=== PATIENT | male | born 1955 | race Caucasian/White ===

== ENCOUNTER 2021-04-24 10:10 | Emergency (ER) | payer OTHER, SELFPAY ==
--- NOTE | ~2021-04-24 | CT_ITS ---
EXAMINATION: THE MASTOID BONES. CLINICAL INFORMATION: Severe right arteritis externa/ear pain COMPARISON: None TECHNIQUE: Axial 0.6 mm thin and reformatted 0.6 mm thin sagittal and coronal images of the mastoid bones were obtained. DLP 294 FINDINGS: There is normal symmetry of bilateral well-aerated mastoid sinuses. There is mild mucoperiosteal thickening left sphenoid sinus. Rest of the paranasal sinuses are well-aerated and clear. RIGHT EAR: There is mucosal thickening along the right external auditory canal consistent with otitis externa. The underlying bone is preserved. The tympanic membrane is normal appearing. The middle ear ossicles are visualized and are symmetrical to the left side. The internal auditory canal, cochlea and the semicircular smiles osseous normal. There is no mucosal thickening in the middle ear. There is mild mucosal thickening right external ear but no focal abscess or collection. The left ear: The left extremity artery canal is widely patent with no mucosal thickening. No bony erosive changes. The left middle ear, tympanic membrane and the middle ear ossicles are intact. The left internal auditory canal, semicircular canals and the cochlea appears intact CT/CT mastoid IMPRESSION: Moderate mucosal thickening right external ear suggestive of otitis externa. No soft tissue mass or abscess seen. The middle ear and internal ear appears intact. The left ureter appears intact. The mastoid sinuses are well-aerated.
[2021-04-24 10:16] VITALS: BP 148/70; PULSE 65; RESP 17; TEMP 35.4; O2SAT 98; BMI 31.9
--- NOTE | 2021-04-24 11:00 | ED_ITS ---
HPI - Ear Problem General Chief complaint: Ear Problems Stated complaint: R SIDE HEAD AND EAR PAIN Time Seen by Provider: 04/24/21 10:42 Source: patient and family () Mode of arrival: ambulatory Limitations: no limitations History of Present Illness HPI Narrative: 65-year-old male with right ear pain for the last week much worse the last 3 days. States her pain is like a toothache, and is throbbing pain. No fevers, no upper respiratory symptoms, no runny nose, no sore throat. No ear discharge. Patient has an appointment at [facility] to be fitted for hearing aids May 05. Patient has pain when he chews. MD Complaint: ear pain Location: right ear Duration: constant Severity: severe Relieving factors: nothing Exacerbating factors: chewing Context: other (long showers) Discharge from ear: no Associated symptoms ear: external ear tenderness Treatment prior to arrival: none Related Data Previous Rx's Medication Instructions Recorded ciprofloxacin HCl 500 mg tablet 500 mg PO BID 7 Days #14 tab 04/24/21 ofloxacin 0.3 % ear drops 10 drp OTIC (EARS) BID 14 Days 04/24/21 #250 ml prednisolone acetate 1 % eye 1 drp OPHTHALMIC (EYE) BID 14 Days 04/24/21 drops,suspension #50 ml prednisone 20 mg tablet 40 mg PO DAILY 5 Days #10 tab 04/24/21 Allergies Allergy/AdvReac Type Severity Reaction Status Date / Time amoxicillin [AMOXICILLIN] Allergy Severe TONGUE Verified 04/24/21 10:22 SWELLING Sulfa (Sulfonamide Allergy Severe SWELLING Verified 04/24/21 10:22 Antibiotics) [SULFA(SULFONAMIDE ANTIBIOTICS)] Iodinated Contrast Media AdvReac Severe TREMORS Verified 04/24/21 10:22 [IV CONTRAST] ezetimibe [From ZETIA] AdvReac Intermediate DIARRHEA Verified 04/24/21 10:22 Review of Systems Constitutional: Constitutional: Denies body ache(s), Denies chills, Denies fatigue, Denies fever(s), Denies headache(s), Denies malaise and Denies weakness Eyes: Eyes: Denies diplopia ENT: Denies vertigo, Denies dizziness, Denies ear discharge, Reports otalgia, Denies headache(s), Denies nasal congestion, Denies nasal discharge, Denies neck pain, Denies sore throat and Denies throat swelling Cardiovascular: Cardiovascular: Denies chest pain, Denies syncope, Denies leg edema, Denies lightheadedness, Denies Loss of Consciousness, Denies palpitations and Denies dyspnea Respiratory: Respiratory: Denies chest congestion, Denies cough and Denies dyspnea Gastrointestinal: Gastrointestinal: Reports abdominal pain, Denies hematochezia, Denies constipation, Denies diarrhea and Denies vomiting Musculoskeletal: Musculoskeletal: Reports no additional musculoskeletal complaints and Denies neck pain Neurologic: Denies confusion, Denies vertigo, Denies dizziness, Denies syncope , Denies headache(s) and Denies weakness Psychiatric: Psychiatric: Denies anxiety, Denies confusion and Denies depression Endocrine: Endocrine: Denies fatigue and Denies palpitations Allergic/Immunologic: Allergic/Immunologic: Denies throat swelling PMFSH Past Medical History Medical History Asthma High cholesterol Hypertension Social History Social History Advance Directives: No Advance Directives Information Provided: No Physical Exam Vital Signs: Vital Signs: Last Vital Signs Temp 97.1 F 04/24/21 13:17 Pulse 55 04/24/21 13:17 Resp 18 04/24/21 13:17 BP 121/70 04/24/21 13:17 Pulse Ox 97 04/24/21 13:17 Body Mass Index 31.9 Const: General: No confusion Nutritional Appearance: well nourished Orientation/consciousness: No confusion Limitations: no limitations HENMT: Head: Yes normal to inspection, Yes normocephalic and Yes atraumatic Ears: hearing grossly normal bilaterally, TM normal on the left, Abnormal EAC present edema on the right and diffuse and EAC tenderness on the right and diff use; Negative for no erythema and no otic discharge, external ear abnormal pain with movement of external ear (tragal tenderness) on the right, mastoid abnormal (tender over right mastoid) and periauricular adenopathy on the right Outer ear/TM images: 1. Severely swollen external auditory canal General nose exam: Normal external nose present Face and sinus: Yes normal facial exam Mouth: Normal oral and palatal mucosa present Throat: Yes posterior oropharynx normal Eyes: Conjunctivae: conjunctivae normal Pupils: Equal, round and reactive pupils present EOM: EOMs intact bilaterally Neck: Neck: Yes full ROM, Yes no lymphadenopathy and Yes supple Resp: Effort & Inspection: normal respiratory effort and able to speak in complete sentences Auscultation: clear to auscultation bilaterally, no crackles, no rales, no rhonchi and no wheezes Cardio: Rate: regular rate Rhythm: regular rhythm Heart sounds: S1 norm al heart sound present and S2 normal heart sound present GI: Inspection: Yes normal to inspection Palpation (GI): Soft to palpation, nontender, no guarding and not rigid Percussion: Yes normal to percussion Auscultation: normal bowel sounds Skin: General skin exam: no rashes or lesions noted Neuro: General: No confusion Cranial nerves: Yes Equal, round and reactive pupils present Extrem: General: Yes normal to inspection and Yes full ROM Psych: Appearance: grossly normal Affect: normal affect Attitude: cooperative Thought process: Normal thought process present Course Course Course Narrative: 65-year-old presents with severe right otitis externa. Patient has right tragal tenderness and of very swollen right external auditory canal. I am not able to insert my otoscope and patient's ear canal, there was too much swelling and edema. Patient is tender over his right mastoid, reports tenderness in his jaw while chewing, concern for malignant or necrotizing external otitis. Therefore obtained CT and labs CT reads: Moderate mucosal thickening right external ear suggestive of otitis externa. No soft tissue mass or abscess seen. The middle ear and internal ear appears intact. The left ureter appears intact. The mastoid sinuses are well-aerated. CRP mildly elevated. No leukocytosis. I was able to insert ear wick in right ear. Patient discharged with oral ciprofloxacin, otic ofloxacin and prednisolone. given the extensive instructions on dosage of prescribed medications, patient referred to our ENT. counseled to call ENT today to see if she can get an appointment before patient has appointment for his hearing aid fitting. MDM - Ear Lab Data Result diagrams: 04/24/21 11:46 Labs: Lab Results 04/24/21 04/24/21 04/24/21 Range/Units 11:46 11:46 11:46 WBC 6.2 (4.8-10.8) X10*3/uL RBC 4.76 (4.60-5.80) X10*6/uL Hgb 14.0 (14.0-18.0) g/dl Hct 40.5 L (42-52) % MCV 85.1 (80-98) fL MCH 29.4 (27.0-33.0) pg MCHC 34.6 (31.0-36.0) g/dl RDW 12.7 (11.0-16.0) % Plt Count 153 L (160-400) X10*3/uL MPV 9.2 L (9.4-12.4) fL Immature Gran % (Auto) 0.3 (0.0-0.4) % Neut % (Auto) 74.4 H (45-73) % Lymph % (Auto) 15.1 L (20-40) % [place] % (Auto) 7.9 (2-11) % Eos % (Auto) 2.1 (0-4) % Baso % (Auto) 0.2 (0-2) % Lymph # (Auto) 0.9 L (1.2-4.9) X10*3/uL [place] # (Auto) 0.5 (0.1-1.2) X10*3/uL Eos # (Auto) 0.1 (0.0-0.4) X10*3/uL Baso # (Auto) 0.0 (0.0-0.2) X10*3/uL Abs Immat Gran (auto) 0.02 (0.00-0.03) X10*3/uL Absolute Neuts (auto) 4.6 (2.0-8.3) X10*3/uL Absolute Nucleated RBC 0.000 (0.0-0.012) X10*3/uL Nucleated RBC % (auto) 0.0 (0.0-0.2) /100WBC ESR 7 (0-15) MM/HR C-Reactive Protein 0.71 H (< or = 0.50) mg/dL Discharge Plan Discharge Clinical Impression: Otitis externa Qualifiers: Otitis externa type: diffuse Chronicity: acute Laterality: right Qualified Code(s): H60.311 - Diffuse otitis externa, right ear Patient Disposition: Home, Self-Care Instructions: Otitis Externa (ED) Additional Instructions: Call Dr Ceron today for a follow up appointment. [phone], today. Clay needs to have a follow-up appointment as soon as possible. Please apply the ear drops to a cotton ball and use as directed. Please take the oral prednisone in the oral antibiotics as well. Please return to emergency room for fevers, worsening pain, or any other new or concerning symptoms Prescriptions: New ciprofloxacin HCl 500 mg tablet 500 mg PO BID 7 Days Qty: 14 RF: 0 prednisone 20 mg tablet 40 mg PO DAILY 5 Days Qty: 10 RF: 0 ofloxacin 0.3 % drops 10 drp otic (ears) BID 14 Days Qty: 250 RF: 0 prednisolone acetate 1 % drops,suspension 1 drp ophthalmic (eye) BID 14 Days Qty: 50 RF: 0 Referrals: Sterling Ceron [Physician] - 2 days (severe right otitis externa) Stand Alone Forms: Work/School Release Interventions: ED Discharge Assessment Last Done: 04/24/21 13:52
[2021-04-24 11:53] LABS: Basophils Percent Auto 0.2 % (0-2); Eosinophils Absolute Auto 0.1 X10*3/uL (0.0-0.4); Eosinophils Percent Auto 2.1 % (0-4); Hematocrit 40.5 % (42-52); Imm Gran Abs Auto 0.02 X10*3/uL (0.00-0.03); Imm Gran Pct Auto 0.3 % (0.0-0.4); Lymphocytes Absolute Auto 0.9 X10*3/uL (1.2-4.9); Lymphocytes Percent Auto 15.1 % (20-40); MANUAL DIFF FLAG NO; Mean Corpuscular HGB Conc 34.6 g/dl (31.0-36.0); Mean Corpuscular Hemoglobin 29.4 pg (27.0-33.0); Mean Corpuscular Volume 85.1 fL (80-98); Mean Platelet Volume 9.2 fL (9.4-12.4); Monocytes Absolute Auto 0.5 X10*3/uL (0.1-1.2); Monocytes Percent Auto 7.9 % (2-11); Neutrophils Absolute Auto 4.6 X10*3/uL (2.0-8.3); Neutrophils Percent Auto 74.4 % (45-73); Platelet Count 153 X10*3/uL (160-400); Red Blood Count 4.76 X10*6/uL (4.60-5.80); Red Cell Distribution Width 12.7 % (11.0-16.0); White Blood Count 6.2 X10*3/uL (4.8-10.8)
[2021-04-24 12:07] LABS: C Reactive Protein 0.71 mg/dL (< or = 0.50)
[2021-04-24 12:34] LABS: Erythrocyte Sedimentation Rate 7 MM/HR (0-15)
[2021-04-24 13:17] VITALS: BP 121/70; PULSE 55; RESP 18; TEMP 36.2; O2SAT 97
== END 2021-04-24 14:01 | disposition home or self-care (01) ==
PROVIDERS: Physician Assistant; Emergency Provider Emergency Medicine; PCP Internal Medicine
DX: H60.311 Diffuse otitis externa, right ear (principal); H92.01 Otalgia, right ear; R51.9 Headache, unspecified; K08.89 Other specified disorders of teeth and supporting structures; Z79.899 Other long term (current) drug therapy
CPT/HCPCS: 36415; 70481; 85025; 85652; 86140; 87040; 99284

== ENCOUNTER 2022-07-02 14:29 | Emergency (ER) | payer OTHER, SELFPAY ==
[2022-07-02 15:45] VITALS: BP 146/76; PULSE 66; RESP 18; TEMP 36.8; O2SAT 98; BMI 34.2
--- NOTE | 2022-07-02 15:45 | ED_ITS ---
HPI - General Adult General Chief complaint: Upper Respiratory Symptoms Stated complaint: Sore Throat Time Seen by Provider: 07/02/22 17:28 Source: patient Mode of arrival: ambulatory Limitations: no limitations Related Data Previous Rx's Medication Instructions Recorded ciprofloxacin HCl 500 mg tablet 500 mg PO BID 7 days #14 tabs 04/24/21 ofloxacin 0.3 % ear drops 10 drp otic (ears) BID 14 days 04/24/21 #250 mL prednisolone acetate 1 % eye 1 drp ophthalmic (eye) BID 14 days 04/24/21 drops,suspension #50 mL prednisone 20 mg tablet 40 mg PO DAILY 5 days #10 tabs 04/24/21 azithromycin 250 mg tablet See Rx Instructions PO .COMPLEX 07/02/22 upper resp infection #6 tabs Allergies Allergy/AdvReac Type Severity Reaction Status Date / Time amoxicillin [AMOXICILLIN] Allergy Severe TONGUE Verified 04/24/21 10:22 SWELLING Sulfa (Sulfonamide Allergy Severe SWELLING Verified 04/24/21 10:22 Antibiotics) [SULFA(SULFONAMIDE ANTIBIOTICS)] Iodinated Contrast Media AdvReac Severe TREMORS Verified 04/24/21 10:22 [IV CONTRAST] ezetimibe [From ZETIA] AdvReac Intermediate DIARRHEA Verified 04/24/21 10:22 [facility] Past Medical History Medical History Asthma High cholesterol Hypertension Social History Social History Advance Directives: No Advance Directives Information Provided: No Physical Exam ED Vital Signs: Vital Signs - 24 hr 07/02/22 15:45 Temperature 98.3 F Pulse Rate 66 Respiratory Rate 18 Blood Pressure 146/76 H Pulse Oximetry 98 Oxygen Delivery Method Room Air BMI result Body Mass Index 34.2 Course Course Course Narrative: RME performed by Tiffany Lopez PA-C. Patient is a 67 year old male presenting to the emergency department with a sore throat. COVID/RSV/Influenza and strep swabs ordered. Patient placed back in the waiting room pending results and bed availability. Patient seen and discharged by Dr. Portillo who created and completed his own note. Medical Decision Making Lab Data Labs: Lab Results 07/02/22 07/02/22 Range/Units 16:19 16:19 Influenza Type A (PCR) NEGATIVE (Negative) Influenza Type B (PCR) NEGATIVE (Negative) RSV RNA Qual (PCR) NEGATIVE (Negative) SARS-CoV-2 RNA (RT-PCR) NEGATIVE (Negative) S. pyogenes GrpA KELLIE Negative (Negative) Discharge Plan Discharge Clinical Impression: Upper respiratory infection Patient Disposition: Home, Self-Care Instructions: Upper Respiratory Infection (ED) Prescriptions: New azithromycin 250 mg tablet See Rx Instructions .ROUTE .COMPLEX Qty: 6 0RF Rx Instructions: take 500 mg today (day 1), then 250 mg for 4 days (days 2-5) No Action ciprofloxacin HCl 500 mg tablet 500 mg PO BID 7 Days Qty: 14 0RF prednisone 20 mg tablet 40 mg PO DAILY 5 Days Qty: 10 0RF ofloxacin 0.3 % drops 10 drp otic (ears) BID 14 Days Qty: 250 0RF prednisolone acetate 1 % drops,suspension 1 drp ophthalmic (eye) BID 14 Days Qty: 50 0RF Rx Instructions: Two drops to right ear 3 to 4 times a day for 2 weeks Referrals: Favio Lindo III, MD [Primary Care Provider] - Stand Alone Forms: Work/School Release Interventions: ED Discharge Assessment Last Done: 07/02/22 17:53 Discharge Date/Time: 07/02/22 17:53
[2022-07-02 16:34] LABS: Strep A Nucleic Acid Negative (Negative)
[2022-07-02 17:15] LABS: Influenza A PCR NEGATIVE (Negative); Influenza B PCR NEGATIVE (Negative); Resp Syncy Virus RNA Qual PCR NEGATIVE (Negative); SARS COV2 PCR INHOUSE NEGATIVE (Negative)
--- NOTE | 2022-07-02 17:43 | ED_ITS ---
HPI - URI/Sore Throat General Chief Complaint: Upper Respiratory Symptoms Stated Complaint: Sore Throat Time Seen by Provider: 07/02/22 17:28 Source: patient Mode of arrival: ambulatory Limitations: no limitations History of Present Illness HPI Narrative: Patient is a 67-year-old male vaccinated for COVID positive coughing upper respiratory symptoms for approximately 1 week along with having ear aches generalized malaise. He came to the ED for further evaluation. Patient is from home. No travel history. Related Data Previous Rx's Medication Instructions Recorded ciprofloxacin HCl 500 mg tablet 500 mg PO BID 7 days #14 tabs 04/24/21 ofloxacin 0.3 % ear drops 10 drp otic (ears) BID 14 days 04/24/21 #250 mL prednisolone acetate 1 % eye 1 drp ophthalmic (eye) BID 14 days 04/24/21 drops,suspension #50 mL prednisone 20 mg tablet 40 mg PO DAILY 5 days #10 tabs 04/24/21 azithromycin 250 mg tablet See Rx Instructions PO .COMPLEX 07/02/22 upper resp infection #6 tabs Allergies Allergy/AdvReac Type Severity Reaction Status Date / Time amoxicillin [AMOXICILLIN] Allergy Severe TONGUE Verified 04/24/21 10:22 SWELLING Sulfa (Sulfonamide Allergy Severe SWELLING Verified 04/24/21 10:22 Antibiotics) [SULFA(SULFONAMIDE ANTIBIOTICS)] Iodinated Contrast Media AdvReac Severe TREMORS Verified 04/24/21 10:22 [IV CONTRAST] ezetimibe [From ZETIA] AdvReac Intermediate DIARRHEA Verified 04/24/21 10:22 Review of Systems Review of Systems: Positive generalized malaise weakness positive sore throat positive cough upper respiratory symptoms Yes all other systems are reviewed and are negative [facility] Past Medical History Attestation statement: The following information was validated with the patient. Medical History Asthma High cholesterol Hypertension Social History Social History Advance Directives: No Advance Directives Information Provided: No Physical Exam Vital Signs: Vital Signs: Last Vital Signs Temp 98.3 F 07/02/22 15:45 Pulse 66 07/02/22 15:45 Resp 18 07/02/22 15:45 BP 146/76 H 07/02/22 15:45 Pulse Ox 98 07/02/22 15:45 O2 Del Method 07/02/22 15:45 BMI result Body Mass Index 34.2 Appearance: Alert. Oriented X3. No acute distress. Eyes: Pupils equal, round and reactive to light. ENT: Pharynx normal. Neck: Normal inspection. Neck supple. No lymph nodes noted. No crepitus CVS: Normal heart rate and rhythm. Pulses normal. Normal S1 and S2 Respiratory: No respiratory distress. Breath sounds normal. No Wheezing. No rales Abdomen: Soft and nontender. No rigidity. No distention. good BS x4 Skin: Skin warm and dry. Normal skin color. Normal skin turgor. Extremities: No lower extremity edema. Neurovascular intact to all extremities. No Lacerations. No Rash Neuro: Oriented X 3. No motor deficit. No sensory deficit. Moving all extermities. No slurred speech MDM - URI/Sore Throat MDM Narrative Medical decision making narrative: Well-appearing O2 sat 98% on room air. Patient's flu RSV COVID all negative. Rapid strep negative. Likely viral question atypical infection we will go ahead and give patient a Z-Alexander. Follow up on an outpatient basis. In stable condition Medical Records Attestation: I reviewed the patient's medical records. Lab Data Attestation: I reviewed the patient's lab results. Labs: Lab Results 07/02/22 07/02/22 Range/Units 16:19 16:19 Influenza Type A (PCR) NEGATIVE (Negative) Influenza Type B (PCR) NEGATIVE (Negative) RSV RNA Qual (PCR) NEGATIVE (Negative) SARS-CoV-2 RNA (RT-PCR) NEGATIVE (Negative) S. pyogenes GrpA KELLIE Negative (Negative) Discharge Plan Discharge Clinical Impression: Upper respiratory infection Patient Disposition: Home, Self-Care Instructions: Upper Respiratory Infection (ED) Prescriptions: New azithromycin 250 mg tablet See Rx Instructions .ROUTE .COMPLEX Qty: 6 0RF Rx Instructions: take 500 mg today (day 1), then 250 mg for 4 days (days 2-5) No Action ciprofloxacin HCl 500 mg tablet 500 mg PO BID 7 Days Qty: 14 0RF prednisone 20 mg tablet 40 mg PO DAILY 5 Days Qty: 10 0RF ofloxacin 0.3 % drops 10 drp otic (ears) BID 14 Days Qty: 250 0RF prednisolone acetate 1 % drops,suspension 1 drp ophthalmic (eye) BID 14 Days Qty: 50 0RF Rx Instructions: Two drops to right ear 3 to 4 times a day for 2 weeks Referrals: Favio Lindo III, MD [Primary Care Provider] - Stand Alone Forms: Work/School Release
== END 2022-07-02 17:53 | disposition home or self-care (01) ==
PROVIDERS: Physician Assistant Medical; Emergency Provider Emergency Medicine Emergency Medical Services; PCP Internal Medicine
DX: J06.9 Acute upper respiratory infection, unspecified (principal); J02.9 Acute pharyngitis, unspecified; Z20.822 Contact with and (suspected) exposure to COVID-19; Z79.899 Other long term (current) drug therapy
CPT/HCPCS: 0241U; 87651; 99282; 99283

== ENCOUNTER 2023-09-27 09:02 | Outpatient (AMB) | payer OTHER, SELFPAY ==
--- NOTE | 2023-09-27 10:33 | AM.OFFWIN_ITS ---
Intake Vital Signs 09/27/23 10:42 Weight 212 lb BP 132/70 Blood Pressure Location Lt brachial Position Sitting Pulse 69 Pulse Source Pulse Oximeter Temp 97.3 F Temp Source Temporal Artery Scan Pulse Oximetry (%) 96 Oxygen Delivery Method Room Air Intake Visit Reasons: EP headache 100.8 fever cough [id number] Intake Note: pt is here today for headache fever 100.8 and cough started 2 days ago Patient Tobacco Use Status: Never used Tobacco Allergies amoxicillin [AMOXICILLIN] Allergy (Severe, Verified 09/27/23 10:34) TONGUE SWELLING Sulfa (Sulfonamide Antibiotics) [SULFA(SULFONAMIDE ANTIBIOTICS)] Allergy (Severe, Verified 09/27/23 10:34) SWELLING Iodinated Contrast Media [IV CONTRAST] Adverse Reaction (Severe, Verified 09/27/23 10:34) TREMORS ezetimibe [From ZETIA] Adverse Reaction (Intermediate, Verified 09/27/23 10:34) DIARRHEA Do you need a note to return to daycare/school/sports/work: Yes HPI HPI Comments History of Present Illness Details This is a 68-year-old male with a past medical history of hypertension, hyperlipidemia and BPH presenting for evaluation of a fever, cough, myalgias and headache that started yesterday. Patient states that his was seen in the emergency department over the weekend and was diagnosed with influenza. Patient has been using Tylenol and cough drops for his symptoms and is afebrile at this time. Patient denies having any ear pain, sore throat, chest pain or shortness of breath. [facility] Medical History Asthma High cholesterol Hypertension Social History Patient Tobacco Use Status: Never used Tobacco Review of Systems Const All systems reviewed & are unremarkable except as noted in HPI and below Reports no additional complaints, Reports body aches, Reports fever(s), Reports headache(s) and Reports malaise Eyes Reports no additional complaints ENT Reports no additional complaints and Reports headache(s) Card Reports no additional complaints, Denies chest pain and Denies dyspnea Resp Reports cough and Denies dyspnea Neuro Reports no additional complaints and Reports headache(s) Physical Exam Patient is afebrile. Const General: cooperative and comfortable; No no acute distress or lethargic Nutritional Appearance: average body habitus Orientation/consciousness: patient oriented x3 and No lethargic Limitations: no limitations HEENT Head: Yes normal to inspection and Yes normocephalic Ears: hearing grossly normal bilaterally, external ears normal, TM's normal bilaterally and EAC's normal General nose exam: Normal external nose present Face and sinus: Yes normal facial exam and Yes sinuses nontender Mouth: Normal oral and palatal mucosa present and moist mucous membranes Throat: Yes posterior oropharynx normal and No postnasal drainage Eyes General: appearance normal, both eyes and all related structures Neck Lymphatic: no lymphadenopathy noted Resp Effort & Inspection: normal respiratory effort, able to speak in complete sentences, Actively coughing and no respiratory distress Auscultation: clear to auscultation bilaterally Cardio Rate: regular rate Rhythm: regular rhythm Neuro General: patient oriented x3 Psych Appearance: grossly normal Mental Status: mental status grossly normal Insight: Good insight present (Psych) Judgement: Good judgement present (Psych) Assessment & Plan Assessment & Plan (1) Cough with fever: Comment: Patient's lung sounds are clear to auscultation bilaterally the patient is afebrile at this time. Given this patient's exposure to influenza, Tamiflu will be prescribed. Code(s): R05.9 - Cough, unspecified; R50.9 - Fever, unspecified Plan: SARS panel is ordered and pending. Tamiflu will be prescribed. Orders: Orders SARS-CoV2/FLU/RSV Today R05.9 - Cough, unspecified Medications: New oseltamivir (Tamiflu) 75 mg PO BID 5 days 10 caps 0RF Coding Level of Care Code Est Pt Level 3 (00247) Diagnoses Cough with fever R05.9; R50.9 Time Spent (min) 20
[2023-09-27 10:42] VITALS: BP 132/70; PULSE 69; TEMP 36.3; O2SAT 96
== END 2023-09-27 11:08 | disposition home or self-care (01) ==
PROVIDERS: PCP Internal Medicine; Visit Provider Physician Assistant
DX: R05.9 Cough, unspecified (principal); R50.9 Fever, unspecified
CPT/HCPCS: 99213

== ENCOUNTER 2023-09-27 13:15 | Outpatient (REF) | payer OTHER, SELFPAY ==
[2023-09-27 15:52] LABS: Influenza A PCR POSITIVE (Negative); Influenza B PCR NEGATIVE (Negative); Resp Syncy Virus RNA Qual PCR NEGATIVE (Negative); SARS COV2 PCR INHOUSE NEGATIVE (Negative)
== END 2023-09-27 13:16 | disposition home or self-care (01) ==
LOC: HO.HMGCLNP 13:15
PROVIDERS: Visit Provider Physician Assistant
DX: Z11.52 Encounter for screening for COVID-19 (principal); Z20.822 Contact with and (suspected) exposure to COVID-19; R05.9 Cough, unspecified
CPT/HCPCS: 0241U